=== PATIENT | female | born 1960 | race Caucasian/White ===

== ENCOUNTER 2023-02-23 11:19 | Emergency (ER) | payer OTHER ==
[~2023-02-23] VITALS: Ht 162.6 cm; Wt 59.0 kg
[2023-02-23] MEDS ORDERED: SYNTHROID88 MCG PO (12:09)
[2023-02-23] MEDS ORDERED: RESTORIL30 MG PO (12:10)
[2023-02-23] MEDS ORDERED: SIMETHICONE80 MG PO (12:10)
[2023-02-23 13:49] LABS: HEMATOCRIT 39.2 % (36.0-45.00); HEMOGLOBIN 13.3 g/dL (12.0-15.00); MEAN CELL VOLUME 89.8 fL (80.00-100.00); MEAN CORPUSCULAR HEMOGLOBIN 30.5 pg (27.00-32.0); PLATELET COUNT 289 K/uL (150-450); RED BLOOD COUNT 4.36 M/uL (4.00-6.00)
[2023-02-23 13:59] LABS: PH,URINE 5.5 (5.0-8.0); URINE APPEARANCE Clear; URINE BILIRRUBIN Negative (NEGATIVE); URINE BLOOD Trace; URINE COLOR Dark Yellow; URINE GLUCOSE Negative (NEGATIVE); URINE LEUKOCYTE Moderate; URINE NITRATE Positive; URINE PROTEIN Negative (NEGATIVE); URINE UROBILINOGEN 0.2 E.U./dl
[2023-02-23 14:21] LABS: CALCIUM 9.6 mg/dL (8.5-10.1); CREATININE SERUM 0.71 mg/dL (0.55-1.02); GFR 83.14; POTASSIUM 3.64 mEq/L (3.5-5.1)
[2023-02-23 14:57] LABS: URINE EPITHELIAL CELLS 6.7 uL (0.0-38.8); URINE RBC 9.7 uL (0.0-20.8); URINE WBC 29.3 uL (0.0-23.2)
[2023-02-23 14:59] LABS: URINE BACTERIA > 9821.5 uL (0.0-1933)
== END 2023-02-23 15:43 | disposition home or self-care (01) ==
LOC: ER 11:19
PROVIDERS: Emergency Medicine
DX: R10.30 Lower abdominal pain, unspecified (principal); E03.9 Hypothyroidism, unspecified

== ENCOUNTER → 2023-03-05 | Emergency (ER) | payer OTHER ==
[~2023-03-05] VITALS: Ht 165.1 cm; Wt 61.2 kg
[~2023-03-05] MED LIST: RESTORIL30 MG PO; SIMETHICONE80 MG PO; SIMVASTATIN40 MG PO; SYNTHROID88 MCG PO
== END | disposition left against medical advice (07) ==
LOC: ER 12:00
DX: Z53.21 Procedure and treatment not carried out due to patient leaving prior to being seen by health care provider (principal)